=== PATIENT | female | born 1950 | race Caucasian/White ===

== ENCOUNTER → 2018-01-13 13:56 | Outpatient (CLI) | payer MEDICARE, OTHER, SELFPAY ==
--- NOTE | 2018-01-13 | DI.RAD.S_ITS ---
This blank DEXA report has been sent in error by the PACS system. The correct and complete report will be forthcoming in 1-2 days. Thank you for your patience and understanding. Dictated by: Lamont Morejon M.D. on 01/13/2018 at 16:29 Approved by: Lamont Morejon M.D. on 01/13/2018 at 16:29
== END ==
PROVIDERS: Visit Provider Internal Medicine
DX: Z78.0 Asymptomatic menopausal state (principal)
CPT/HCPCS: 77080

== ENCOUNTER 2020-05-30 01:57 | Emergency (ER) | payer MEDICARE, OTHER, SELFPAY ==
[2020-05-30 02:04] VITALS: BP 184/111; PULSE 80; RESP 18; TEMP 36.9; O2SAT 96; BMI 37.4
--- NOTE | 2020-05-30 02:14 | ED_ITS ---
HPI - Abdominal Pain General Chief Complaint: Abdominal Pain Stated Complaint: abd pain low back pain nausea think pancreatitis Time Seen by Provider: 05/30/20 02:00 Source: patient Mode of arrival: Ambulatory Limitations: no limitations History of Present Illness HPI narrative: 70-year-old female nonsmoker with history of pancreatitis presents with a chief complaint of severe epigastric pain with radiation to her back that started over the weekend. She states Saturday morning she was eating some cereal which seemed to trigger pain. This was followed by nausea and vomiting and she went over the course of the day without eating anymore and her pain seemed to improve. She states that motion seems to make her pain worse and sometimes laying flat does as well. She had some dinner last night which made her pain becomes significantly worse. She states is a 7/10 and sharp and stabbing in nature. She denies any fever or chills. She is not dizzy nor weak or lightheaded. MD complaint: abdominal pain Onset (ago): day(s) Pain Consistency: intermittent Location: epigastric Severity: severe Severity scale (1-10): 7 Quality: stabbing and aching Radiation: back Relieving factors: nothing Exacerbating factors: eating and movement Associated symptoms: nausea and vomiting Related Data Previous Rx's Medication Instructions Recorded hydrocodone-acetaminophen 1 tab PO Q4-6H PRN #10 tab 05/30/20 ondansetron 4 mg PO TID-QID PRN #10 tab 05/30/20 Allergies Allergy/AdvReac Type Severity Reaction Status Date / Time acetaminophen [From Percocet] Allergy Rash Verified 05/30/20 02:09 oxycodone [From Percocet] Allergy Rash Verified 05/30/20 02:09 Review of Systems Constitutional Constitutional: Denies chills, Denies fatigue, Denies fever(s), Denies frequent falls, Denies lethargy and Denies weakness Eyes Eyes: Denies change in vision, Denies eye discharge, Denies irritation and D enies loss of vision ENT Ears, Nose, Mouth, and Throat: Denies change in voice, Denies dizziness, Denies neck pain, Denies sore throat and Denies throat swelling Cardiovascular Cardiovascular: Denies chest pain, Denies irregular heart rhythm, Denies lightheadedness, Denies palpitations, Denies dyspnea, Denies dyspnea on exertion and Denies orthopnea Respiratory Respiratory: Denies cough, Denies dyspnea, Denies dyspnea on exertion and Denies wheezing Gastrointestinal Gastrointestinal: Reports abdominal pain, Denies change in bowel habits, Denies diarrhea, Reports nausea and Reports vomiting Musculoskeletal Musculoskeletal: Denies neck pain and Denies numbness Integumentary/Breasts Skin/Breast: Denies pruritus, Denies erythema, Denies rash and Denies wounds Neurologic Neurologic: Denies behavioral changes, Denies confusion, Denies dizziness, Denies frequent falls, Denies loss of vision, Denies numbness and Denies weak ness Psychiatric Psychiatric: Denies anxiety, Denies behavioral changes, Denies confusion, Denies depression, Denies homicidal ideation and Denies suicidal ideation Endocrine Endocrine: Denies fatigue, Denies flushing and Denies palpitations Hematologic/Lymphatic Hematologic/Lymphatic: Denies easy bruising Allergic/Immunologic Allergic/Immunologic: Denies urticaria, Denies throat swelling and Denies wheezing Patient History Social History Smoking Status: Never smoker Smoking Status: Never smoker alcohol intake frequency: 0-2 drinks per day Substance Use Type: does not use Exam Narrative Exam Narrative: GENERAL: [70] year old patient appears stated age. Well- nourished, well-developed patient, in mild distress. HEAD: Atraumatic. Normocephalic. EYES: Pupils equal round and reactive. Extraocular motions intact. No scleral icterus. No injection or drainage. ENT: Nose without bleeding, purulent drainage. Throat without erythema, tonsillar hypertrophy or exudate. Airway patent. NECK: Trachea midline. Non tender CARDIOVASCULAR: Regular rate and rhythm without murmurs, gallops, or rubs. RESPIRATORY: Clear to auscultation. Breath sounds equal bilaterally. No wheezes, rales, or rhonchi. GASTROINTESTINAL: Abdomen soft, non-tender, nondistended. EXTREMITIES: No edema or joint tenderness. BACK: Nontender without deformity or crepitance. No flank tenderness. NEURO: AOx3. SKIN: No rash or erythema of visible areas Initial Vital Signs Initial Vital Signs: Vital Signs Temperature 98.4 F 05/30/20 02:04 Pulse Rate 80 05/30/20 02:04 Respiratory Rate 18 05/30/20 02:04 Blood Pressure 184/111 H 05/30/20 02:04 Pulse Oximetry 96 04/19/21 02:04 Course Orders Ordered: ED Orders 05/30/20 02:06 EKG-12 Lead Stat 05/30/20 02:15 Complete Blood Count AUTO DIFF Stat Comprehensive Metabolic Panel Stat Lipase Stat 05/30/20 02:52 CT abdomen pelvis w con Stat Ondansetron HCl (Ondansetron 4 Mg/2 Ml Inj) 4 mg IV Q4HR PRN PRN Reason: Nausea And Vomiting Last Admin: 05/30/20 04:53 Dose: 4 mg Documented by: SARI Discontinued Medications Hydrocodone Bitart/Acetaminophen (Hydrocodone/Acet 5/325 Prepack) 1 bottle MISC SEEINSTR ONE Stop: 05/30/20 04:58 Hydromorphone HCl (Hydromorphone 0.5 Mg Inj) 0.5 mg IV NOW ONE Stop: 05/30/20 02:54 Last Admin: 05/30/20 02:56 Dose: 0.5 mg Documented by: GABRIEL Sodium Chloride (Normal Saline 0.9%) 1,000 mls @ 1,000 mls/hr IV BOLUS ONE Stop: 05/30/20 03:04 Last Infusion: 05/30/20 04:46 Dose: 0 mls/hr Documented by: Admin: 05/30/20 02:24 Dose: 1,000 mls/hr Documented by: SARI Ondansetron HCl (Ondansetron 4 Mg Odt Prepack) 1 bottle MISC SEEINSTR ONE Stop: 05/30/20 04:58 Pantoprazole Sodium (Pantoprazole 40 Mg Vial) 40 mg IV NOW ONE Stop: 05/30/20 02:06 Last Admin: 05/30/20 02:24 Dose: 40 mg Documented by: SARI Vital Signs Vital signs: Vital Signs - 8 hr 05/30/20 02:04 05/30/20 02:53 05/30/20 05:08 Temperature 98.4 F Pulse Rate 80 68 61 Respiratory Rate 18 15 Blood Pressure 184/111 H 166/105 H 178/93 H Pulse Oximetry 96 97 97 MDM - Abdominal Pain Lab Data Result diagrams: 05/30/20 02:15 05/30/20 02:15 Labs: Lab Results 05/30/20 05/30/20 Range/Units 02:15 02:15 WBC 11.1 H (4.5-11.0) X10^3/uL RBC 5.03 (4.0-5.2) X10^6/uL Hgb 15.1 (12.0-16.0) g/dL Hct 44.9 (36-46) % MCV 89.3 (80-100) fL MCH 30.0 (26-34) PG MCHC 33.6 (30-36) % RDW 13.8 (11.6-14.8) % Plt Count 297 (150-400) X10^3/uL Neut % (Auto) 68.7 (50-75) % Lymph % (Auto) 10.8 L (25-40) % [place] % (Auto) 15.4 H (3-14) % Eos % (Auto) 4.4 H (2-4) % Baso % (Auto) 0.7 (0-2) % Neut # (Auto) 7600 H (4380-8591) /uL Lymph # (Auto) 1200 (9832-8543) /uL [place] # (Auto) 1700 H (0-900) /uL Eos # (Auto) 500 H (0-450) /uL Baso # (Auto) 100 (0-100) /uL Sodium 141 (137-145) mmol/L Potassium 4.0 (3.4-5.1) mmol/L Chloride 109 H (98-107) mmol/L Carbon Dioxide 24 (22-32) mmol/L BUN 18 H (7-17) mg/dL Creatinine 0.92 (0.52-1.04) mg/dL Estimated GFR > 60.0 (>60) mL/min BUN/Creatinine Ratio 19.6 (6-22) Glucose 116 H (80-110) mg/dL Calcium 10.0 (8.4-10.2) mg/dL Total Bilirubin 0.5 (0.2-1.3) mg/dL AST 21 (14-36) IU/L ALT 18 (<35) IU/L Alkaline Phosphatase 72 (38-126) U/L Total Protein 7.4 (6.3-8.2) g/dL Albumin 4.2 (3.5-5.0) g/dL Globulin 3.2 (1.7-4.1) g/dL Albumin/Globulin Ratio 1.3 (1.0-2.8) Lipase 413 H (23-300) U/L Imaging Data CT scan - abdomen/pelvis: Radiologist's Impression: Mild acute pancreatitis, apparent thickening of gastric wall but collapsed artifactual versus gastritis MDM Narrative Medical decision making narrative: 62-year-old female nondrinker with surgically absent gallbladder presents with epigastric pain that started after eating with radiation to her back. She was able to control her pain by not eating or drinking for 24 hour period and then in eating last evening her symptoms started again. Multiple diagnoses including cardiac disease versus gallbladder versus pancreatitis versus reflux versus other considered. Labs is suggest a mild pancreatitis which is demonstrated on CT scan with IV contrast. There is no abscess or pseudocyst noted. Patient able to tolerate clear liquids thinners and would highly prefer to try blood going home with pain meds and a clear liq uid diet for few days and close follow-up. She has been given extensive return precautions and questions have been answered to her apparent satisfaction Discharge Plan Departure Patient Disposition: Home Clinical Impression: Acute pancreatitis Qualifiers: Pancreatitis type: unspecified pancreatitis type Acute pancreatitis complication: no infection or necrosis Qualified Code(s): K85.90 - Acute pancreatitis without necrosis or infection, unspecified Instructions: DI for Pancreatitis Activity Restrictions/Additional Instructions: *You have been diagnosed with [mild acute pancreatitis] *What to do: *Take medications as directed * please consume clear liquids only for the next 48 hours and then advance slowly being careful to avoid fatty foods, alcohol, nicotine, caffeine *Follow up with your primary care provider in 2-3 days, call for an appointment. Let them know you were seen in the Emergency Department and that we ask that you be seen in follow up *Return to ER if you should have any new, worsening or concerning symptoms, such as [increasing pain, persistent vomiting, fever greater than 101 F, yellowing of the skin or other bothersome symptoms] Prescriptions: New hydrocodone-acetaminophen 5-325 mg tablet 1 tab PO Q4-6H PRN (Reason: pain) Qty: 10 RF: 0 ondansetron 4 mg tablet,disintegrating 4 mg PO TID-QID PRN (Reason: nausea and vomiting) Qty: 10 RF: 0
[2020-05-30 02:24] LABS: Add Manual Diff / Slide Review NO; Basophils Absolute Auto 100 /uL (0-100); Basophils Percent Auto 0.7 % (0-2); Eosinophils Absolute Auto 500 /uL (0-450); Eosinophils Percent Auto 4.4 % (2-4); Hematocrit 44.9 % (36-46); Hemoglobin 15.1 g/dL (12.0-16.0); Lymphocytes Absolute Auto 1200 /uL (1100-4500); Lymphocytes Percent Auto 10.8 % (25-40); Mean Corpuscular HGB Conc 33.6 % (30-36); Mean Corpuscular Volume 89.3 fL (80-100); Monocytes Absolute Auto 1700 /uL (0-900); Monocytes Percent Auto 15.4 % (3-14); Neutrophils Absolute Auto 7600 /uL (1500-7000); Neutrophils Percent Auto 68.7 % (50-75); Platelet Count 297 X10^3/uL (150-400); Red Blood Cell Count 5.03 X10^6/uL (4.0-5.2); Red Cell Distribution Width 13.8 % (11.6-14.8); White Blood Cell Count 11.1 X10^3/uL (4.5-11.0)
[2020-05-30] MEDS: PANTOPRAZOLE 40 MG VIAL IV (02:24)
[2020-05-30] MEDS: SODIUM CHLORIDE 0.9% 1,000 ML 1000 ML IV (02:24)
[2020-05-30 02:32] LABS: Alanine Aminotransferase 18 IU/L (<35); Albumin 4.2 g/dL (3.5-5.0); Albumin Globulin Ratio 1.3 (1.0-2.8); Alkaline Phosphatase 72 U/L (38-126); Aspartate Aminotransferase 21 IU/L (14-36); BUN Creatinine Ratio 19.6 (6-22); Bilirubin Total 0.5 mg/dL (0.2-1.3); Blood Urea Nitrogen 18 mg/dL (7-17); Carbon Dioxide 24 mmol/L (22-32); Chloride 109 mmol/L (98-107); Estimated Glomerular Filt Rate > 60.0 mL/min (>60); Globulin 3.2 g/dL (1.7-4.1); Glucose 116 mg/dL (80-110); HEMOLYSIS < 15 (0-50); Lipase 413 U/L (23-300); Sodium 141 mmol/L (137-145); Total Protein 7.4 g/dL (6.3-8.2)
--- NOTE | 2020-05-30 02:52 | DI.CT.S_ITS ---
PROCEDURE: CT ABDOMEN PELVIS W CON INDICATIONS: severe epigastric pain, radiation to back pancreatitis TECHNIQUE: After the administration of intravenous contrast, 5 mm thick sections acquired from the diaphragm to the symphysis. 5 mm coronal and sagittal reformats were acquired. For radiation dose reduction, the following was used: automated exposure control, adjustment of mA and/or kV according to patient size. COMPARISON: None. FINDINGS: Image quality: Excellent. ABDOMEN: Lung bases: Lung bases are clear. Heart size is normal. Solid organs: Liver is normal in size and enhancement. Gallbladder has been previously resected. Biliary system is non dilated. Pancreas enhances normally. Spleen is normal in size and enhancement. No adrenal nodules. Kidneys demonstrate normal size and enhancement, without hydronephrosis. Several peripelvic cysts are present, left greater than right. Peritoneum and bowel: Bowel loops demonstrate normal wall thickness and caliber. No free fluid or air. Nodes and vessels: No retroperitoneal or mesenteric adenopathy by size criteria. Aorta and inferior vena cava are normal in size. Miscellaneous: No ventral hernias. PELVIS: Genitourinary: Bladder wall thickness is normal. Miscellaneous: No inguinal hernias or adenopathy. Bones: No suspicious bony lesions. No vertebral body compression fractures. IMPRESSION: Prior cholecystectomy. Mild acute pancreatitis at the pancreatic head/uncinate process area. No biliary distension or pancreatic duct dilatation is associated. Incidental note is made of several peripelvic cysts, left greater than right. Dictated by: Nigel Sahu M.D. on 05/30/2020 at 10:31 Approved by: Nigel Sahu M.D. on 05/30/2020 at 10:32
[2020-05-30 02:53] VITALS: BP 166/105; PULSE 68; O2SAT 97
[2020-05-30] MEDS: HYDROMORPHONE 0.5 MG INJ IV (02:56)
[2020-05-30] MEDS: ONDANSETRON 4 MG/2 ML INJ IV (04:53)
[2020-05-30 05:08] VITALS: BP 178/93; PULSE 61; RESP 15; O2SAT 97
[2020-05-30] MEDS: ONDANSETRON 4 MG ODT PREPACK 1 BOTTLE MISC (05:15)
[2020-05-30] MEDS: HYDROCODONE/ACET 5/325 PREPACK 1 BOTTLE MISC (05:15)
== END 2020-05-30 05:27 | disposition home or self-care (01) ==
PROVIDERS: Emergency Provider Emergency Medicine
DX: K85.90 Acute pancreatitis without necrosis or infection, unspecified (principal); I10 Essential (primary) hypertension
CPT/HCPCS: 36415; 74177; 80053; 83690; 85025; 93005; 93010; 96361; 96374; 96375; 99284; C9113; J1170; J2405; Q9967

== ENCOUNTER 2021-02-15 17:56 | Emergency (ER) | payer MEDICARE, SELFPAY ==
[2021-02-15 18:12] VITALS: BP 162/97; PULSE 97; RESP 18; TEMP 36.3; O2SAT 96
[2021-02-15 18:52] LABS: Add Manual Diff / Slide Review NO; Basophils Absolute Auto 0 /uL (0-100); Basophils Percent Auto 0.3 % (0-2); Eosinophils Absolute Auto 300 /uL (0-450); Eosinophils Percent Auto 1.7 % (2-4); Hematocrit 46.4 % (36-46); Hemoglobin 15.9 g/dL (12.0-16.0); Lymphocytes Absolute Auto 700 /uL (1100-4500); Lymphocytes Percent Auto 4.6 % (25-40); Mean Corpuscular HGB Conc 34.3 % (30-36); Mean Corpuscular Volume 87.5 fL (80-100); Monocytes Absolute Auto 2100 /uL (0-900); Monocytes Percent Auto 13.3 % (3-14); Neutrophils Absolute Auto 12800 /uL (1500-7000); Neutrophils Percent Auto 80.1 % (50-75); Platelet Count 297 X10^3/uL (150-400); Red Cell Distribution Width 12.9 % (11.6-14.8)
[2021-02-15 18:59] LABS: Alanine Aminotransferase 17 IU/L (<35); Albumin 4.4 g/dL (3.5-5.0); Albumin Globulin Ratio 1.2 (1.0-2.8); Alkaline Phosphatase 81 U/L (38-126); Aspartate Aminotransferase 24 IU/L (14-36); Bilirubin Total 1.2 mg/dL (0.2-1.3); Blood Urea Nitrogen 12 mg/dL (7-17); Calcium 9.7 mg/dL (8.4-10.2); Carbon Dioxide 27 mmol/L (22-32); Chloride 100 mmol/L (98-107); Estimated Glomerular Filt Rate > 60.0 mL/min (>60); Globulin 3.6 g/dL (1.7-4.1); Glucose 123 mg/dL (80-110); HEMOLYSIS < 15 (0-50); Lipase 799 U/L (23-300); Potassium 3.7 mmol/L (3.4-5.1); Sodium 133 mmol/L (137-145)
[2021-02-15] MEDS: SODIUM CHLORIDE 0.9% 1,000 ML 1000 ML IV (19:27)
--- NOTE | 2021-02-15 19:55 | ED.ABDPAIN ---
HPI - Abdominal Pain General Chief Complaint: Abdominal Pain Stated Complaint: pancreatitis flare up is worse Time Seen by Provider: 02/15/21 19:16 Source: patient Mode of arrival: Ambulatory History of Present Illness HPI narrative: Patient is a 70-year-old female who presents with pancreatitis. She actually had a CT yesterday at outpatient from walk-in clinic which I did see the results of that show acute uncomplicated pancreatitis. She had blood work which included amylase, cbc and CMP, amylase was elevated, lipase was not checked. She has been drinking fluids no nausea or vomiting but increased abdominal pain and back pain days. She denies any fever or chills. She denies drinking alcohol. She has prior cholecystectomy. She says this feels like previous pancreatitis. She denies any fever or chills. Related Data Previous Rx's Medication Instructions Recorded hydrocodone 5 mg-acetaminophen 325 1 tab PO Q4-6H PRN #10 tab 05/30/20 mg tablet ondansetron 4 mg disintegrating 4 mg PO TID-QID PRN #10 tab 05/30/20 tablet Allergies Allergy/AdvReac Type Severity Reaction Status Date / Time acetaminophen [From Percocet] Allergy Rash Verified 05/30/20 02:09 oxycodone [From Percocet] Allergy Rash Verified 05/30/20 02:09 Review of Systems Review of Systems Narrative: GENERAL: Denies chills, fatigue, malaise, fever, sweats, travel HEENT: Denies sinus pain, ear pain, sore throat, difficulty swallowing, neck pain RESPIRATORY: Denies dyspnea, cough, wheezing, hemoptysis, sputum. CARDIOVASCULAR: Denies chest pain, palpitations, orthopnea, edema GASTROINTESTINAL: See HPI : Denies dysuria, frequency, incontinence, hematuria, urinary retention, flank pain. MUSCULOSKELETAL: Denies weakness, joint pain, or bony pain SKIN: No rash, no erythema, no pruritus NEUROLOGIC: Denies weakness, dizziness, headache, numbness, change in speech, confusion PSYCHIATRIC: No concerning psychosocial issues. 12 point review of systems is negative except for those stated above and HPI Patient History Social History Smoking Status: Never smoker Smoking Status: Never smoker alcohol intake frequency: 0-2 drinks per day Substance Use Type: does not use Exam Initial Vital Signs Initial Vital Signs: Vital Signs Temperature 97.3 F L 02/15/21 18:12 Pulse Rate 97 H 02/15/21 18:12 Respiratory Rate 18 02/15/21 18:12 Blood Pressure 162/97 H 02/15/21 18:12 Pulse Oximetry 96 02/15/21 18:12 GENERAL: Well-appearing 70-year-old female HEENT: Head atraumatic,EOMI, pupils reactive, face symmetric, moist mucous membranes CARDIOVASCULAR: Regular rate and rhythm without murmurs, rubs or gallops. RESPIRATORY: Breath sounds equal bilaterally, no wheezes rales or rhonchi. ABDOMEN: Soft, mildly tender epigastric right upper quadrant area EXTREMITIES: Normal range of motion, no clubbing or edema. Neurovascularly intact NEUROLOGICAL: Alert and oriented x4.Normal gait and speech. SKIN: Warm, dry, no laceration, no petechiae, no rashes or lesions. Course Orders Ordered: ED Orders 02/15/21 17:24 Complete Blood Count AUTO DIFF Stat Comprehensive Metabolic Panel Stat Lipase Stat 02/15/21 18:48 EKG-12 Lead Stat Discontinued Medications Sodium Chloride (Normal Saline 0.9%) 1,000 mls @ 1,000 mls/hr IV BOLUS ONE Stop: 02/15/21 20:15 Last Infusion: 02/15/21 20:57 Dose: 0 mls/hr Documented by: Admin: 02/15/21 19:27 Dose: 1,000 mls/hr Documented by: JANEY Morphine Sulfate (Morphine 4 Mg/Ml Inj) 4 mg IV NOW ONE Stop: 02/15/21 20:16 Last Admin: 02/15/21 20:30 Dose: 4 mg Documented by: DEBRA Ondansetron HCl (Ondansetron 4 Mg/2 Ml Inj) 4 mg IV NOW ONE Stop: 02/15/21 20:16 Last Admin: 02/15/21 20:30 Dose: 4 mg Documented by: DEBRA Vital Signs Vital signs: Vital Signs - 8 hr 02/15/21 18:12 Temperature 97.3 F L Pulse Rate 97 H Respiratory Rate 18 Blood Pressure 162/97 H Pulse Oximetry 96 MDM - Abdominal Pain Lab Data Result diagrams: 02/15/21 17:24 02/15/21 17:24 Labs: Lab Results 02/15/21 02/15/21 Range/Units 17:24 17:24 WBC 16.0 H (4.5-11.0) X10^3/uL RBC 5.30 H (4.0-5.2) X10^6/uL Hgb 15.9 (12.0-16.0) g/dL Hct 46.4 H (36-46) % MCV 87.5 (80-100) fL MCH 30.0 (26-34) PG MCHC 34.3 (30-36) % RDW 12.9 (11.6-14.8) % Plt Count 297 (150-400) X10^3/uL Neut % (Auto) 80.1 H (50-75) % Lymph % (Auto) 4.6 L (25-40) % [place] % (Auto) 13.3 (3-14) % Eos % (Auto) 1.7 L (2-4) % Baso % (Auto) 0.3 (0-2) % Neut # (Auto) 46181 H (5816-5820) /uL Lymph # (Auto) 700 L (5457-9357) /uL [place] # (Auto) 2100 H (0-900) /uL Eos # (Auto) 300 (0-450) /uL Baso # (Auto) 0 (0-100) /uL Sodium 133 L (137-145) mmol/L Potassium 3.7 (3.4-5.1) mmol/L Chloride 100 (98-107) mmol/L Carbon Dioxide 27 (22-32) mmol/L BUN 12 (7-17) mg/dL Creatinine 0.92 (0.52-1.04) mg/dL Estimated GFR > 60.0 (>60) mL/min BUN/Creatinine Ratio 13.0 (6-22) Glucose 123 H (80-110) mg/dL Calcium 9.7 (8.4-10.2) mg/dL Total Bilirubin 1.2 (0.2-1.3) mg/dL AST 24 (14-36) IU/L ALT 17 (<35) IU/L Alkaline Phosphatase 81 (38-126) U/L Total Protein 8.0 (6.3-8.2) g/dL Albumin 4.4 (3.5-5.0) g/dL Globulin 3.6 (1.7-4.1) g/dL Albumin/Globulin Ratio 1.2 (1.0-2.8) Lipase 799 H (23-300) U/L MDM Narrative Medical decision making narrative: At this time patient does have leukocytosis with very mild elevation of lipase. She is tolerating fluids and at this time does not meet admission criteria. She is given pain medication fluids and nausea medication in the ED. I discussed with her about going home but she left prior to me talking to her or giving her medications to be at home, for signs and symptoms when to return to the ER. This times seeing as though she had a CT yesterday which I saw the results on her phone she does not need repeat CT at this time. Discharge Plan Departure Patient Disposition: Home Clinical Impression: Pancreatitis, Left against medical advice Prescriptions: No Action hydrocodone-acetaminophen 5-325 mg tablet 1 tab PO Q4-6H PRN (Reason: pain) Qty: 10 0RF ondansetron 4 mg tablet,disintegrating 4 mg PO TID-QID PRN (Reason: nausea and vomiting) Qty: 10 0RF
[2021-02-15] MEDS: ONDANSETRON 4 MG/2 ML INJ IV (20:30)
[2021-02-15] MEDS: MORPHINE 4 MG/ML INJ IV (20:30)
== END 2021-02-15 21:00 | disposition home or self-care (01) ==
PROVIDERS: Emergency Provider Emergency Medicine
DX: K85.90 Acute pancreatitis without necrosis or infection, unspecified (principal); R03.0 Elevated blood-pressure reading, without diagnosis of hypertension; Z53.29 Procedure and treatment not carried out because of patient's decision for other reasons
CPT/HCPCS: 80053; 83690; 85025; 93005; 93010; 96361; 96374; 96375; 99283; 99284; J2270; J2405

== ENCOUNTER 2021-06-05 10:50 | Emergency (ER) | payer MEDICARE, SELFPAY ==
[2021-06-05] VITALS (10 sets, daily range): BP systolic 144–189; BP diastolic 72–103; PULSE 67–94; RESP 14; TEMP 36.2; O2SAT 92–99; BMI 37.4
--- NOTE | 2021-06-05 11:30 | ED.ABDPAIN ---
HPI - Abdominal Pain General Chief Complaint: Abdominal Pain Stated Complaint: States pancreatitis Time Seen by Provider: 06/05/21 10:55 Source: patient Mode of arrival: Ambulatory History of Present Illness HPI narrative: 71-year-old female nonsmoker with history of pancreatitis presents with a chief complaint of epigastric pain since Saturday, after eating a cheeseburger. She states her pain was significant, 10/10 and radiated to her back. She was unable to eat anything and has had episodes of nausea and vomiting. She denies fever or chills. She states there is slight worsening with motion and improvement with rest. She denies any cough, shortness of breath or trouble breathing. She is otherwise well and free of complaint Related Data Previous Rx's Medication Instructions Recorded hydrocodone 5 mg-acetaminophen 325 1 tab PO Q4-6H PRN #10 tab 05/30/20 mg tablet ondansetron 4 mg disintegrating 4 mg PO TID-QID PRN #10 tab 05/30/20 tablet cephalexin 500 mg capsule 500 mg PO BID #10 cap 06/05/21 hydrocodone 5 mg-acetaminophen 325 1 tab PO Q4-6H PRN #10 tab 06/05/21 mg tablet ondansetron 4 mg disintegrating 4 mg PO TID-QID PRN #10 tab 06/05/21 tablet Allergies Allergy/AdvReac Type Severity Reaction Status Date / Time clindamycin [From Cleocin] Allergy Severe Rash Verified 06/05/21 10:58 oxycodone [From Percocet] Allergy Rash Verified 05/30/20 02:09 Review of Systems Review of Systems Narrative: GENERAL: Denies chills, fatigue, malaise, fever, sweats. HEENT: Denies sinus pain, ear pain, sore throat, difficulty swallowing, dizziness. RESPIRATORY: Denies dyspnea, cough, wheezing, hemoptysis, sputum. CARDIOVASCULAR: Denies chest pain, palpitations, orthopnea, edema, GASTROINTESTINAL: See HPI : Denies dysuria, frequency, incontinence, hematuria, urinary retention. MUSCULOSKELETAL: denies weakness, joint pain, or bony pain SKIN: Denies rash, skin lesions, or other NEUROLOGIC: Denies weakness, headache, numbness, change in speech, confusion, seizures, incoordination. PSYCHIATRIC: No concerning psychosocial issues. 12 point review of systems is negative except for those stated above Patient History Social History Smoking Status: Never smoker Smoking Status: Never smoker alcohol intake frequency: 0-2 drinks per day Substance Use Type: does not use Exam Narrative Exam Narrative: GENERAL: [71] year old patient appears stated age. Well-developed patient, in mild distress. HEAD: Atraumatic. Normocephalic. EYES: Pupils equal round and reactive. Extraocular motions intact. No scleral icterus. No injection or drainage. ENT: Nose without bleeding, purulent drainage. Throat without erythema, tonsillar hypertrophy or exudate. Airway patent. NECK: Trachea midline. Non tender CARDIOVASCULAR: Regular rate and rhythm without murmurs, gallops, or rubs. RESPIRATORY: Clear to auscultation. Breath sounds equal bilaterally. No wheezes, rales, or rhonchi. GASTROINTESTINAL: Abdomen soft, epigastric pain to palpation, nondistended. EXTREMITIES: No edema or joint tenderness. BACK: Nontender without deformity or crepitance. No flank tenderness. NEURO: AOx3. SKIN: No rash or erythema of visible areas Initial Vital Signs Initial Vital Signs: Vital Signs Temperature 97.1 F L 06/05/21 10:53 Pulse Rate 94 H 06/05/21 10:53 Respiratory Rate 14 06/05/21 10:53 Blood Pressure 189/97 H 06/05/21 10:53 Pulse Oximetry 99 06/05/21 10:53 Course Orders Ordered: ED Orders 06/05/21 10:58 EKG-12 Lead Stat 06/05/21 11:45 Complete Blood Count AUTO DIFF Stat Comprehensive Metabolic Panel Stat Lipase Stat Partial Thromboplastin Time Stat Prothrombin Time INR Stat 06/05/21 12:14 US abdomen limited Stat 06/05/21 13:09 CT abdomen pelvis w con Stat 06/05/21 14:20 Urine Culture Stat Urine Microscopic Stat Discontinued Medications Hydromorphone HCl (Hydromorphone 0.5 Mg Inj) 0.5 mg IV NOW ONE Stop: 06/05/21 11:02 Last Admin: 06/05/21 11:56 Dose: 0.5 mg Documented by: ATAYLOR Sodium Chloride (Normal Saline 0.9%) 1,000 mls @ 1,000 mls/hr IV BOLUS ONE Stop: 06/05/21 12:00 Last Infusion: 06/05/21 14:42 Dose: 0 mls/hr Documented by: Admin: 06/05/21 11:57 Dose: 1,000 mls/hr Documented by: BI Ondansetron HCl (Ondansetron 4 Mg/2 Ml Inj) 4 mg IV NOW ONE Stop: 06/05/21 11:02 Last Admin: 06/05/21 11:56 Dose: 4 mg Documented by: BI Vital Signs Vital signs: Vital Signs - 8 hr 06/05/21 11:57 06/05/21 12:00 06/05/21 12:30 Pulse Rate 74 69 67 Blood Pressure 185/103 H Pulse Oximetry 96 97 92 06/05/21 12:31 06/05/21 13:00 06/05/21 13:01 Pulse Rate 71 74 74 Blood Pressure 166/93 H 144/72 H Pulse Oximetry 93 94 93 06/05/21 13:30 06/05/21 14:00 06/05/21 14:30 Pulse Rate 77 75 72 Blood Pressure 153/84 H Pulse Oximetry 95 97 97 MDM - Abdominal Pain Lab Data Result diagrams: 06/05/21 11:45 06/05/21 11:45 Labs: Lab Results 06/05/21 06/05/21 06/05/21 Range/Units 11:45 11:45 11:45 WBC 12.4 H (4.5-11.0) X10^3/uL RBC 5.18 (4.0-5.2) X10^6/uL Hgb 15.6 (12.0-16.0) g/dL Hct 46.1 H (36-46) % MCV 89.0 (80-100) fL MCH 30.1 (26-34) PG MCHC 33.9 (30-36) % RDW 13.1 (11.6-14.8) % Plt Count 338 (150-400) X10^3/uL Neut % (Auto) 74.1 (50-75) % Lymph % (Auto) 8.1 L (25-40) % [place] % (Auto) 14.9 H (3-14) % Eos % (Auto) 2.4 (2-4) % Baso % (Auto) 0.5 (0-2) % Neut # (Auto) 9200 H (2456-1955) /uL Lymph # (Auto) 1000 L (2376-5892) /uL [place] # (Auto) 1800 H (0-900) /uL Eos # (Auto) 300 (0-450) /uL Baso # (Auto) 100 (0-100) /uL PT 12.7 (10.1-12.7) SECONDS INR 1.1 (0.9-1.3) APTT 35 (26.4-36.2) SECONDS Sodium 139 (137-145) mmol/L Potassium 3.9 (3.4-5.1) mmol/L Chloride 106 (98-107) mmol/L Carbon Dioxide 25 (22-32) mmol/L BUN 14 (7-17) mg/dL Creatinine 0.81 (0.52-1.04) mg/dL Estimated GFR > 60 (>60) mL/min BUN/Creatinine Ratio 17.3 (6-22) Glucose 121 H (80-110) mg/dL Calcium 9.3 (8.4-10.2) mg/dL Total Bilirubin 0.9 (0.2-1.3) mg/dL AST 26 (14-36) IU/L ALT 20 (<35) IU/L Alkaline Phosphatase 81 (38-126) U/L Total Protein 8.0 (6.3-8.2) g/dL Albumin 4.4 (3.5-5.0) g/dL Globulin 3.6 (1.7-4.1) g/dL Albumin/Globulin Ratio 1.2 (1.0-2.8) Lipase 209 (23-300) U/L Urine RBC (0-5/HPF) Urine WBC (0-5/HPF) Ur Squamous Epith Cells (0-5/HPF) Urine Bacteria (None) Ur Culture Indicated? 06/05/21 Range/Units 14:20 WBC (4.5-11.0) X10^3/uL RBC (4.0-5.2) X10^6/uL Hgb (12.0-16.0) g/dL Hct (36-46) % MCV (80-100) fL MCH (26-34) PG MCHC (30-36) % RDW (11.6-14.8) % Plt Count (150-400) X10^3/uL Neut % (Auto) (50-75) % Lymph % (Auto) (25-40) % [place] % (Auto) (3-14) % Eos % (Auto) (2-4) % Baso % (Auto) (0-2) % Neut # (Auto) (5267-1477) /uL Lymph # (Auto) (4129-4508) /uL [place] # (Auto) (0-900) /uL Eos # (Auto) (0-450) /uL Baso # (Auto) (0-100) /uL PT (10.1-12.7) SECONDS INR (0.9-1.3) APTT (26.4-36.2) SECONDS Sodium (137-145) mmol/L Potassium (3.4-5.1) mmol/L Chloride (98-107) mmol/L Carbon Dioxide (22-32) mmol/L BUN (7-17) mg/dL Creatinine (0.52-1.04) mg/dL Estimated GFR (>60) mL/min BUN/Creatinine Ratio (6-22) Glucose (80-110) mg/dL Calcium (8.4-10.2) mg/dL Total Bilirubin (0.2-1.3) mg/dL AST (14-36) IU/L ALT (<35) IU/L Alkaline Phosphatase (38-126) U/L Total Protein (6.3-8.2) g/dL Albumin (3.5-5.0) g/dL Globulin (1.7-4.1) g/dL Albumin/Globulin Ratio (1.0-2.8) Lipase (23-300) U/L Urine RBC 1-5/hpf (0-5/HPF) Urine WBC 5-10/hpf H (0-5/HPF) Ur Squamous Epith Cells 0-1 /hpf (0-5/HPF) Urine Bacteria Moderate (10-30) H (None) Ur Culture Indicated? Specimen cultured Point of care testing: Urine Dip Bedside Urine Glucose Negative Bedside Urine Bilirubin - Negative Bedside Urine Ketone +/- 5 Urine Specific [place] 1.015 Bedside Urine Occult Blood ++ Bedside Urine pH 6.0 Bedside Urine Protein +/- 15 Bedside Urine Urobilinogen +/- 1mg Bedside Urine Nitrite + Positive Bedside Urine Leukocytes +++ 500 Esterase Imaging Data US - abdomen: Radiologist's Impression: [address] [address] Ultrasound Report Signed Patient: Lyndsay Mcgowan MR#: [id number] : 1950 Acct:[id number] Age/Sex: 71 / F Date of Service: 06/05/21 Loc: ED Accession Number: [id number] ?? Procedure: US abdomen limited Ordering Provider: Erich Richardson D.O. PROCEDURE:? US ABDOMEN LIMITED ? INDICATIONS:? severe epigastric pain, radiation to back ? TECHNIQUE:? Real-time scanning was performed of the abdominal and retroperitoneal organs, with image documentation.? ? COMPARISON:? None. ? FINDINGS: ? Liver:? Hepatic parenchyma shows diffuse increased echogenicity consistent with fatty infiltration. ? Gallbladder:? Cholecystectomy ? Common Bile Duct:? 5.9 mm. ? Pancreas:? Unremarkable as visualized ? IMPRESSION: ? 1. Hepatic fatty infiltration.? Otherwise unremarkable right upper quadrant ultrasound ? Approved by: Benji Blandon M.D. on 06/05/[address] scan - abdomen/pelvis: Radiologist's Impression: [place] [id number] CT Scan Report Signed Patient: Lyndsay Mcgowan MR#: [id number] : 1950 Acct:[id number] Age/Sex: 71 / F Date of Service: 06/05/21 Loc: ED Accession Number: [id number] ?? Procedure: CT abdomen pelvis w con Ordering Provider: Erich Richardson D.O. PROCEDURE:? CT ABDOMEN PELVIS W CON ? INDICATIONS:? epigastric pain ? TECHNIQUE:? After the administration of oral and IV contrast, axial sections were acquired from the lung bases to the pubic symphysis.? Coronal and sagittal reformats were performed.? For radiation dose reduction, the following was used:? automated exposure control, adjustment of mA and/or kV according to patient size. ? COMPARISON:? [facility], US, US ABDOMEN LIMITED, 06/05/2021, 12:58.? [facility], CT, CT ABDOMEN PELVIS W CON, 05/30/2020, 2:59.? [facility], CT, CT ABDOMEN PELVIS WITH CONTRAST, 02/14/2021, 14:55. ? FINDINGS:? Image quality:? Excellent.? ? Lung bases:? Unremarkable.? ? Heart:? No significant findings. ? ? ABDOMEN: Liver:? Liver is enlarged with steatosis. Gallbladder:? Removed. Biliary ducts:? Unremarkable.? ? Pancreas:? There is mild stranding within the pancreatic head as well as an overall appearance of pancreatic edema.? No focal fluid collection or ductal dilation.? There is a somewhat masslike appearance within the pancreatic head appearing slightly more defined when compared to prior exam. Spleen:? Unremarkable.? ? Adrenal Glands:? Unremarkable.? ? Kidneys and Ureters:? Left renal parapelvic cysts are present. ? Stomach and Bowel:? Stomach, small bowel loops, and colon are unremarkable.? Peritoneum:? No abnormal intraperitoneal fluid.? No free air.? ? Ventral Wall: ? No hernia.? Abdominal Nodes:? No retroperitoneal or mesenteric adenopathy by size criteria.? Vessels:? Aorta and inferior vena cava are normal in size.? ? PELVIS: Pelvic Organs:? Unremarkable.? ? Bladder:? Unremarkable.? ? Pelvic Nodes: No enlarged lymph nodes.? Miscellaneous: No inguinal hernias are seen. ? ? ? Bones:? Unremarkable.? IMPRESSION:? ? Peripancreatic stranding and edema within the pancreatic head suggestive of pancreatitis. ?As noted above, there is a masslike appearance within the pancreatic head appearing slightly more prominent when compared to prior exam.? While this could be secondary to edema, recommend interval follow-up to document resolution and exclude presence of developing underlying mass lesion of other etiology.? ? ? Dictated by: Destinee Nuñez M.D. on 06/05/2021 at 13:32 ? ? Approved by: Destinee Nuñez M.D. on 06/05/2021 at 13:42 ? [facility] Narrative Medical decision making narrative: Patient with history of pancreatitis presents with epigastric pain that radiates to her back it is made worse by eating. Labs are very reassuring and patient is essentially asymptomatic after treating her pain. Imaging suggests inflammatory change around the pancreas. I did discuss the potential of a mass within her pancreatic head and the need for follow-up. Additionally, she has urine suggesting UTI. Her pain is well controlled, she is not vomiting and is tolerating orals. Return precautions given and questions answered to her apparent satisfaction Discharge Plan Departure Patient Disposition: Home Clinical Impression: Acute pancreatitis, Acute UTI Instructions: DI for Pancreatitis Activity Restrictions/Additional Instructions: *You have been diagnosed with [upper abdominal pain due to very mild pancreatitis. As we discussed your labs are very reassuring and there is no evidence in the blood work of pancreatitis, however the CT scan does show some subtle findings consistent with the diagnosis. Additionally, you were found to have a urinary tract infection *What to do: *Please continue to take your regular medications as directed. [x ] New medication prescriptions sent to your pharmacy: [facility] ] [ ] New medication written as a paper prescription [ ] No new medications given *Please follow up with your primary care provider in 2-3 days, call for an appointment. Let them know you were seen in the Emergency Department and that we ask that you be seen in follow up. We will electronically transmit a record of today's note if your PCP is in our system * in addition to subtle findings consistent with pancreatitis the CT was suggest a possible masslike appearance in your pancreatic head which will require another CT a few months down the road to follow. Your primary care provider can help set this up for you * as we discussed please consume a clear liquid diet for the next 2-3 days and then slowly advance as tolerated, be sure to avoid fatty foods, acidic foods, alcohol and other dietary elements that will likely trigger your pancreas *If you do not have a primary care provider please contact the [facility] Resource line at [phone]. They will ask some questions about your medical history and help get you set up with a doctor in the community. *Return to Emergency Department if you should have any new, worsening or concerning symptoms, such as [fever greater than 101 F, shaking chills, worsening pain, persistent vomiting or other bothersome symptoms] You have been prescribed a short course of narcotic medications. These are potentially dangerous and addictive medications that should be used carefully. While on these medications you cannot drive or operate heavy machinery. Additionally, you cannot sign legal documents or perform any duties such as this. 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 Please understand that we cannot provide further refills of narcotics or controlled substances through the ED and your pain management will need to be through your Primary Care Provider Prescriptions: New hydrocodone-acetaminophen 5-325 mg tablet 1 tab PO Q4-6H PRN (Reason: pain) Qty: 10 0RF cephalexin 500 mg capsule 500 mg PO BID Qty: 10 0RF ondansetron 4 mg tablet,disintegrating 4 mg PO TID-QID PRN (Reason: nausea and vomiting) Qty: 10 0RF No Action hydrocodone-acetaminophen 5-325 mg tablet 1 tab PO Q4-6H PRN (Reason: pain) Qty: 10 0RF ondansetron 4 mg tablet,disintegrating 4 mg PO TID-QID PRN (Reason: nausea and vomiting) Qty: 10 0RF
[2021-06-05 11:52] LABS: Add Manual Diff / Slide Review NO; Basophils Absolute Auto 100 /uL (0-100); Basophils Percent Auto 0.5 % (0-2); Eosinophils Absolute Auto 300 /uL (0-450); Eosinophils Percent Auto 2.4 % (2-4); Hematocrit 46.1 % (36-46); Hemoglobin 15.6 g/dL (12.0-16.0); Lymphocytes Absolute Auto 1000 /uL (1100-4500); Lymphocytes Percent Auto 8.1 % (25-40); Mean Corpuscular HGB Conc 33.9 % (30-36); Mean Corpuscular Hemoglobin 30.1 PG (26-34); Monocytes Absolute Auto 1800 /uL (0-900); Monocytes Percent Auto 14.9 % (3-14); Neutrophils Absolute Auto 9200 /uL (1500-7000); Neutrophils Percent Auto 74.1 % (50-75); Platelet Count 338 X10^3/uL (150-400); Red Blood Cell Count 5.18 X10^6/uL (4.0-5.2); Red Cell Distribution Width 13.1 % (11.6-14.8); White Blood Cell Count 12.4 X10^3/uL (4.5-11.0)
[2021-06-05] MEDS: HYDROMORPHONE 0.5 MG INJ IV (11:56)
[2021-06-05] MEDS: ONDANSETRON 4 MG/2 ML INJ IV (11:56)
[2021-06-05] MEDS: SODIUM CHLORIDE 0.9% 1,000 ML 1000 ML IV (11:57)
[2021-06-05 11:59] LABS: INR 1.1 (0.9-1.3); Prothrombin Time 12.7 SECONDS (10.1-12.7)
[2021-06-05 12:01] LABS: PTT Partial Thromboplastin Tim 35 SECONDS (26.4-36.2)
[2021-06-05 12:03] LABS: Alanine Aminotransferase 20 IU/L (<35); Albumin 4.4 g/dL (3.5-5.0); Albumin Globulin Ratio 1.2 (1.0-2.8); Alkaline Phosphatase 81 U/L (38-126); Aspartate Aminotransferase 26 IU/L (14-36); BUN Creatinine Ratio 17.3 (6-22); Bilirubin Total 0.9 mg/dL (0.2-1.3); Blood Urea Nitrogen 14 mg/dL (7-17); Calcium 9.3 mg/dL (8.4-10.2); Carbon Dioxide 25 mmol/L (22-32); Chloride 106 mmol/L (98-107); Estimated Glomerular Filt Rate > 60 mL/min (>60); Globulin 3.6 g/dL (1.7-4.1); Glucose 121 mg/dL (80-110); HEMOLYSIS < 15 (0-50); Lipase 209 U/L (23-300); Potassium 3.9 mmol/L (3.4-5.1); Sodium 139 mmol/L (137-145)
--- NOTE | 2021-06-05 12:14 | DI.US.S_ITS ---
PROCEDURE: US ABDOMEN LIMITED INDICATIONS: severe epigastric pain, radiation to back TECHNIQUE: Real-time scanning was performed of the abdominal and retroperitoneal organs, with image documentation. COMPARISON: None. FINDINGS: Liver: Hepatic parenchyma shows diffuse increased echogenicity consistent with fatty infiltration. Gallbladder: Cholecystectomy Common Bile Duct: 5.9 mm. Pancreas: Unremarkable as visualized IMPRESSION: 1. Hepatic fatty infiltration. Otherwise unremarkable right upper quadrant ultrasound Approved by: Benji Blandon M.D. on 06/05/2021 at 12:44
--- NOTE | 2021-06-05 13:09 | DI.CT.S_ITS ---
PROCEDURE: CT ABDOMEN PELVIS W CON INDICATIONS: epigastric pain TECHNIQUE: After the administration of oral and IV contrast, axial sections were acquired from the lung bases to the pubic symphysis. Coronal and sagittal reformats were performed. For radiation dose reduction, the following was used: automated exposure control, adjustment of mA and/or kV according to patient size. COMPARISON: [facility], US, US ABDOMEN LIMITED, 06/05/2021, 12:58. [facility], CT, CT ABDOMEN PELVIS W CON, 05/30/2020, 2:59. [facility], CT, CT ABDOMEN PELVIS WITH CONTRAST, 02/14/2021, 14:55. FINDINGS: Image quality: Excellent. Lung bases: Unremarkable. Heart: No significant findings. ABDOMEN: Liver: Liver is enlarged with steatosis. Gallbladder: Removed. Biliary ducts: Unremarkable. Pancreas: There is mild stranding within the pancreatic head as well as an overall appearance of pancreatic edema. No focal fluid collection or ductal dilation. There is a somewhat masslike appearance within the pancreatic head appearing slightly more defined when compared to prior exam. Spleen: Unremarkable. Adrenal Glands: Unremarkable. Kidneys and Ureters: Left renal parapelvic cysts are present. Stomach and Bowel: Stomach, small bowel loops, and colon are unremarkable. Peritoneum: No abnormal intraperitoneal fluid. No free air. Ventral Wall: No hernia. Abdominal Nodes: No retroperitoneal or mesenteric adenopathy by size criteria. Vessels: Aorta and inferior vena cava are normal in size. PELVIS: Pelvic Organs: Unremarkable. Bladder: Unremarkable. Pelvic Nodes: No enlarged lymph nodes. Miscellaneous: No inguinal hernias are seen. Bones: Unremarkable. IMPRESSION: Peripancreatic stranding and edema within the pancreatic head suggestive of pancreatitis. As noted above, there is a masslike appearance within the pancreatic head appearing slightly more prominent when compared to prior exam. While this could be secondary to edema, recommend interval follow-up to document resolution and exclude presence of developing underlying mass lesion of other etiology. Dictated by: Destinee Nuñez M.D. on 06/05/2021 at 13:32 Approved by: Destinee Nuñez M.D. on 06/05/2021 at 13:42
[2021-06-05 14:41] LABS: Bacteria Urine Moderate (10-30); Culture Indicated Urine Specimen Cultured; RBC Urine 1-5/HPF (0-5/HPF); Squamous Epithelial Cell Urine 0-1 /HPF (0-5/HPF); WBC Urine 5-10/HPF (0-5/HPF)
--- NOTE | 2021-06-05 14:49 | PC.NURSE ---
Pt provided water at 1420 with instructions to drink small sips at intervals, pt tolerating so far. States she has not vomited food or fluids at home but has dry heeved.
== END 2021-06-05 14:59 | disposition home or self-care (01) ==
PROVIDERS: Emergency Provider Emergency Medicine
DX: K85.90 Acute pancreatitis without necrosis or infection, unspecified (principal); N39.0 Urinary tract infection, site not specified; R93.89 Abnormal findings on diagnostic imaging of other specified body structures; Z88.5 Allergy status to narcotic agent
CPT/HCPCS: 36415; 74177; 76705; 80053; 81003; 81015; 83690; 85025; 85610; 85730; 87077; 87086; 87186; 93005; 96361; 96374; 96375; 99284; J1170; J2405; Q9967

== ENCOUNTER → 2023-05-05 16:10 | Outpatient (CLI) | payer MEDICARE, SELFPAY ==
--- NOTE | 2023-05-05 16:11 | DI.RAD.S_ITS ---
PROCEDURE: XR HIP W PEL IF DONE YENNI MIN 4V INDICATIONS: Left hip pain TECHNIQUE: AP pelvis with lateral view(s) of the bilateral hip(s). COMPARISON: None. FINDINGS: Bones: No fractures or dislocations. Mild degenerative changes of the bilateral hips. Pelvic ring appears intact. No suspicious bony lesions. Soft tissues: The visualized bowel gas pattern is normal. No suspicious soft tissue calcifications. IMPRESSION: No acute bony abnormality. Mild degenerative changes of the bilateral hips. Dictated by: Renan Haider M.D. on 05/06/2023 at 11:08 Approved by: Renan Haider M.D. on 05/06/2023 at 11:11
== END ==
PROVIDERS: Referring Provider Nurse Practitioner Family; Visit Provider Nurse Practitioner Family
DX: M25.552 Pain in left hip (principal)
CPT/HCPCS: 73522

== ENCOUNTER → 2024-06-30 12:48 | Outpatient (CLI) | payer MEDICARE, SELFPAY ==
[2024-06-30 13:11] LABS: Add Manual Diff / Slide Review NO; Basophils Absolute Auto 100 /uL (0-100); Basophils Percent Auto 0.7 % (0-2); Eosinophils Absolute Auto 200 /uL (0-450); Eosinophils Percent Auto 2.3 % (2-4); Hematocrit 46.7 % (36-46); Hemoglobin 15.9 g/dL (12.0-16.0); Lymphocytes Absolute Auto 1500 /uL (1100-4500); Lymphocytes Percent Auto 17.2 % (25-40); Mean Corpuscular Hemoglobin 30.6 PG (26-34); Monocytes Absolute Auto 1400 /uL (0-900); Monocytes Percent Auto 16.3 % (3-14); Neutrophils Absolute Auto 5500 /uL (1500-7000); Neutrophils Percent Auto 63.5 % (50-75); Platelet Count 349 X10^3/uL (150-400); Red Blood Cell Count 5.19 X10^6/uL (4.0-5.2); Red Cell Distribution Width 13.6 % (11.6-14.8); White Blood Cell Count 8.6 X10^3/uL (4.5-11.0)
[2024-06-30 13:20] LABS: Hemoglobin A1C% w Est Avg Glu 5.5 % (4.0-6.0)
[2024-06-30 14:07] LABS: Alanine Aminotransferase 26 IU/L (<35); Albumin 4.6 g/dL (3.5-5.0); Albumin Globulin Ratio 1.5 (1.0-2.8); Alkaline Phosphatase 84 U/L (38-126); Aspartate Aminotransferase 27 IU/L (14-36); BUN Creatinine Ratio 19.5 (6-22); Bilirubin Total 0.8 mg/dL (0.2-1.3); Blood Urea Nitrogen 22 mg/dL (7-17); Calcium 9.8 mg/dL (8.4-10.2); Carbon Dioxide 23 mmol/L (22-32); Chloride 106 mmol/L (98-107); Cholesterol 195 mg/dL (140-199); Estimated Glomerular Filt Rate 52 mL/min (>60); Glucose 110 mg/dL (70-99); HDL Cholesterol 52 mg/dL (40-60); HEMOLYSIS < 15 (0-50); LDL Cholesterol Calculated 114 mg/dL (<100); Potassium 4.4 mmol/L (3.4-5.1); Sodium 139 mmol/L (137-145); Total Protein 7.6 g/dL (6.3-8.2); Triglycerides 143 mg/dL (35-150)
[2024-06-30 14:33] LABS: Thyroid Stimulating Hormone 1.13 uIU/mL (0.47-4.68)
== END ==
PROVIDERS: PCP Student in an Organized Health Care Education/Training Program; Referring Provider Student in an Organized Health Care Education/Training Program; Visit Provider Student in an Organized Health Care Education/Training Program
DX: I10 Essential (primary) hypertension (principal); Z13.1 Encounter for screening for diabetes mellitus; Z79.899 Other long term (current) drug therapy
CPT/HCPCS: 36415; 80053; 80061; 83036; 84443; 85025